=== PATIENT | male | born 1960 | race African-American/Black ===

== ENCOUNTER 2021-01-24 21:06 | Inpatient (IN) | payer MEDICARE, OTHER ==
[~2021-01-24] VITALS: Ht 177.8 cm; Wt 89.6 kg
[2021-01-24 21:07] VITALS: BP 250/139
[2021-01-24 21:15] LABS: BE(vivo) 1.4 mmol/L (-2 to +3); HCO3 28.2 mmol/L (22.0-26.0); PCO2 55.8 mmHg (35.0-45.0); PO2 273.2 mmHg (80.0-100.0); pH 7.322 (7.360-7.450); sO2 99.6 % (92.0-98.0)
[2021-01-24 22:56] LABS: ABSOLUTE NEUTROPHILS 8.3 thou/uL (1.4-8.2); BASOPHILS 0.7 % (0.0-2.0); EOSINOPHILS 5.2 % (0.0-3.0); HEMATOCRIT 30.2 % (42.0-52.0); HEMOGLOBIN 9.3 gm/dL (14.0-18.0); LYMPHOCYTES 4.9 % (24.0-44.0); MCH 27.9 pg (26.0-34.0); MCHC 30.7 g/dL (28.0-37.0); MCV 90.9 fL (80.0-100.0); MONOCYTES 5.6 % (1.0-8.0); PLATELET COUNT 479 thou/uL (150-400); POLYS 83.6 % (36.0-66.0); RBC 3.32 mil/uL (4.50-6.00); RDW 18.2 % (10.5-14.5)
[2021-01-24 22:59] LABS: ANION GAP 10 mmol/L (7-16); BUN 35 mg/dL (7-18); CALCIUM 7.2 mg/dL (8.5-10.1); CHLORIDE 104 mmol/L (98-107); CO2 28 mmol/L (21-32); CREATININE 10.3 mg/dL (0.7-1.3); GLUCOSE 147 mg/dL (74-106); POTASSIUM 4.9 mmol/L (3.5-5.1); SODIUM 142 mmol/L (136-145)
[2021-01-24 23:03] LABS: APTT 30.1 Seconds (24.5-32.8); INR 1.1; PROTIME 11.4 Seconds (9.3-11.4)
[2021-01-24 23:08] LABS: SGOT 37 U/L (15-37); SGPT 29 U/L (16-63); TOTAL BILIRUBIN 0.3 mg/dL (0.2-1.0); TOTAL PROTEIN 7.1 g/dL (6.4-8.2); TROPONIN-I <0.06 ng/mL (<0.06)
[2021-01-24 23:38] VITALS: BP 154/83
[2021-01-24 23:55] VITALS: BP 168/79
[2021-01-25] VITALS (78 sets, daily range): BP systolic 122–244; BP diastolic 65–131
--- NOTE | 2021-01-25 03:02 | NUR ---
ASSUMED CARE OF PATIENT FROM ER. PATIENT REMAINS ON BIPAP, ABLE TO TITRATE DOWN FROM 100% FIO2. NITRO GTT INFUSING AND TITRATED PER PROTOCOL. BROTHER ERENDIRA FELIX CALLED THE UNIT, PERMISSION TO SPEAK TO HIM OBTAINED FROM PATIENT. ERENDIRA GIVEN ROOM #, CODE NUMBER AND UPDATE ON CONDITION. POC GOALS ESTABLISHED.
--- NOTE | 2021-01-25 07:20 | EKG ---
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1960 Requested By: Ovi Craig Order Number: [id number] MD: Herrera Heaton Measurements Intervals Rosalia Rate: 105 P: 28 VA: 146 QRS: 14 QRSD: 95 T: 17 QT: 382 QTc: 506 Interpretive Statements Sinus tachycardia Poor R wave progression Prolonged QT interval Baseline wander in lead(s) V3 No previous ECG available for comparison Electronically Signed On 01-25-2021 7:19:51 IS MANAGER by Herrera Heaton [email or web address] <ELECTRONICALLY SIGNED> By: Herrera Heaton MD, [facility] 01/25/21718 00 00 Herrera Heaton MD, FACC /EPI
--- NOTE | 2021-01-25 08:30 | NUR ---
chart review. discussed during rounds this am. cm unable to visit with him rt requiring use of bipap. getting dialysis today. will cont following as needed for dc needs.
--- NOTE | 2021-01-25 08:51 | NUR ---
RD consulted. Newly admitted with SOA. Hx ESRD and receives dialysis. Currently has diet ordered however per ICU rounds this am, need to hold npo as pt desats very easilty without BIPAP. Unsure of wt hx. Will follow.
--- NOTE | 2021-01-25 09:02 | NUR ---
VERY SLEEPY.RESPONDS W ONE WORDED ANSWERS.FOLLOWS SIMPLE 1&2 STEP COMMANDS. NPO FOR EGD THIS AM (~1100 PER [facility]).--VW
--- NOTE | 2021-01-25 10:53 | NUR ---
ADV. DIR. CONSULT [phone]. THIS CITY ENGINEER WAS ABLE TO SPEAK TO AND UNDERSTAND THE PATIENT HE WAS ON A BIPAP MACHINE. HE SAID HE WAS NOT INTERESTED IN SELECTING A DPOA FOR HEALTHCARE TODAY.
--- NOTE | 2021-01-25 18:43 | NUR ---
PATIENT PROGRESSING TOWARDS PLAN OF CARE. PATIENT HAD 3.9L REMOVED IN DIALYSIS. PATIENT REMOVED OFF OF BIPAP AT 1700 TO 5LNC. PATIENT EATING AND DRINKING. NO COMPLAINTS OF SOB. PATIENT ARE OUT OF ISOLATION UPDATED BROTHER ERENDIRA ABOUT PATIENT STATUS.
[2021-01-25] MEDS ORDERED: VENTOLIN HFA 1818 GM INH (19:59)
[2021-01-25] MEDS ORDERED: ALBUTEROL2.5 MG/3 M INH (19:59)
[2021-01-25] MEDS ORDERED: PROAIR HFA8.5 GM INH (20:00)
[2021-01-25 23:06] LABS: HEP B SURFACE Ab(ANTI-HBS Reactive (()); HEPATITIS B SURFACE AG Negative (Negative)
[2021-01-26] VITALS (33 sets, daily range): BP systolic 122–166; BP diastolic 64–84
--- NOTE | 2021-01-26 06:43 | NUR ---
PATIENT TOLERATED NC THROUGH THE NIGHT. PATIENT VERBALIZES IMPROVED BREATHING AND EDEMA. PATIENT PROGRESSING TOWARDS GOALS.
--- NOTE | 2021-01-26 09:45 | NUR ---
cm visited with pt at bedside, cm cont to wear face mask and shield during visit. he was up in recliner chair, [place], soft spoken, a & o with some forgetfulness at times. "can talk to my older brother norah and daughter deacon, not remember her number. independent when feel good. using oxygen of family that , have inhaler and breathing tx. [place] [facility] [place] [facility] [place]. [place] apartment, 1st floor, no steps. [facility] at [place] [address] manage own medication. have hh now from [facility] set it up"/eben. will cont following as needed for dc needs.
[2021-01-26] MEDS ORDERED: SPIRIVA18 MCG INH (10:05)
[2021-01-26] MEDS ORDERED: NORVASC10 MG PO (10:06)
[2021-01-26] MEDS ORDERED: BREO ELLIPTA 21 EACH INH (10:06)
[2021-01-26] MEDS ORDERED: HYDRALAZINE 2525 M1 PO (10:07)
[2021-01-26] MEDS ORDERED: TOPROL XL100 MG PO (10:09)
[2021-01-26] MEDS ORDERED: ZESTRIL40 MG PO (10:09)
--- NOTE | 2021-01-26 18:56 | NUR ---
Patient progressing towards plan of care as evidenced by improved lung sounds, improve breathing, and improved mood. He expressed he is feeling much better. He denies pain. Plan of care is to continue to monitor patient status and vitals every 4 hours, as he is critical care telemetry status.
[2021-01-27] VITALS (30 sets, daily range): BP systolic 139–184; BP diastolic 72–98
--- NOTE | 2021-01-27 06:15 | NUR ---
PATIENT CONTINUES TO PROGRESS TOWARDS GOALS. PATIENT ANTICIPATING DC TODAY.
--- NOTE | 2021-01-27 09:11 | NUR ---
ASSUMED CARE OF PT AT [address] MANN AT 0910 REGARDING THE FACT THAT THE PT THINKS HE IS GOING HOME AFTER DIALYSIS TODAY. MACKENZIE SAID HE DID NOT SAY HE COULD GO HOME BUT WAS GOING TO CHECK WITH [facility]. PER MACKENZIE EVERYONE MUST SIGN OFF BEFORE HE LEAVES. I WENT BACK IN AND SPOKE TO THE PT, HE SAID IF HE HAS TO GO TO ANOTHER FLOOR THAT'S FINE BUT HE'S READY TO GO.
--- NOTE | 2021-01-27 11:00 | NUR ---
discussed during am rounds, pt was getting dialysis tx and he saying he is going home today. he is up adlib, when not getting tx's. he has [facility] number to follow up outpt as needed. compliance with medication and follow up appointment if ordered by MD. cm visited with pt brother norah " i am getting ready to go for covid shoot so some one will be able to pick him up when he is discharged"/brother norah. dcp home no needs and resume [facility] at [facility] and [address] [facility] [place].
[2021-01-27 12:14] LABS: HEMATOCRIT 31.3 % (42.0-52.0); HEMOGLOBIN 9.8 gm/dL (14.0-18.0); MCH 27.6 pg (26.0-34.0); MCHC 31.3 g/dL (28.0-37.0); MCV 88.4 fL (80.0-100.0); RBC 3.54 mil/uL (4.50-6.00); RDW 17.6 % (10.5-14.5); WBC 5.7 thou/uL (4.0-11.0)
[2021-01-27 12:22] LABS: POTASSIUM 3.5 mmol/L (3.5-5.1)
[2021-01-27 12:23] LABS: CREATININE 5.2 mg/dL (0.7-1.3)
[2021-01-27] MEDS ORDERED: BREO ELLIPTA 21 EACH INH ×2 (13:02→14:22)
[2021-01-27] MEDS ORDERED: TOPROL XL100 MG PO ×2 (13:02→14:22)
[2021-01-27] MEDS ORDERED: PROAIR HFA8.5 GM INH ×2 (13:02→14:22)
[2021-01-27] MEDS ORDERED: ACETAMINOPHEN325 M1 PO (13:02)
[2021-01-27] MEDS ORDERED: LEVOFLOXACIN500 MG PO ×2 (13:02→14:22)
[2021-01-27] MEDS ORDERED: HYDRALAZINE 2525 M1 PO ×2 (13:02→14:22)
[2021-01-27] MEDS ORDERED: SPIRIVA18 MCG INH ×2 (13:02→14:22)
--- NOTE | 2021-01-27 15:19 | NUR ---
FAXED DISCHARGE ORDERS, SUMMARY, FLOWSHEETS AND NEGATIVE COVID RESULT TO [facility]. WILL CONFIRM THEY RECEIVED. [facility]: P [phone]; FAX [phone]
== END 2021-01-27 16:00 | disposition home or self-care (01) | DRG 871 ==
LOC: ER 21:06 → ICU 21:59 → EROBS 21:59 → ICU 23:51
PROVIDERS: Emergency Medicine; Hospitalist; ADMIT Internal Medicine; ATTEND Internal Medicine
PROC: 5A09557 Assistance with Respiratory Ventilation, Greater than 96 Consecutive Hours, Continuous Positive Airway Pressure (ICD-10-PCS; principal; 2021-01-24)
PROC: 5A1D70Z Performance of Urinary Filtration, Intermittent, Less than 6 Hours Per Day (ICD-10-PCS; 2021-01-26)
PROC: 5A1D70Z Performance of Urinary Filtration, Intermittent, Less than 6 Hours Per Day (ICD-10-PCS; 2021-01-27)
DX: A41.9 Sepsis, unspecified organism (principal); J18.9 Pneumonia, unspecified organism; N18.6 End stage renal disease; J96.01 Acute respiratory failure with hypoxia; J96.02 Acute respiratory failure with hypercapnia; I13.2 Hypertensive heart and chronic kidney disease with heart failure and with stage 5 chronic kidney disease, or end stage renal disease; J81.1 Chronic pulmonary edema; I50.9 Heart failure, unspecified; I16.0 Hypertensive urgency; Z20.822 Contact with and (suspected) exposure to COVID-19; F17.210 Nicotine dependence, cigarettes, uncomplicated; J45.909 Unspecified asthma, uncomplicated; Z79.899 Other long term (current) drug therapy
CPT/HCPCS: 10078; 10203; 32100